=== PATIENT | female | born 2000 | race Caucasian/White ===

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

== ENCOUNTER 2020-11-07 14:40 | Emergency (ER) | payer MEDICAID ==
[~2020-11-07] VITALS: Ht 157.5 cm; Wt 48.0 kg
[2020-11-07] MEDS ORDERED: PYRIDOXINE HCL 50MG TABLET PO ONE (15:15)
[2020-11-07 15:51] LABS: CHLORIDE 106 mEq/L (98-107)
[2020-11-07 16:37] VITALS: BP 101/71
== END 2020-11-07 16:41 | disposition home or self-care (01) ==
LOC: ER 14:40
DX: O21.8 Other vomiting complicating pregnancy (principal); O26.891 Other specified pregnancy related conditions, first trimester; J45.909 Unspecified asthma, uncomplicated; G40.909 Epilepsy, unspecified, not intractable, without status epilepticus; Z3A.01 Less than 8 weeks gestation of pregnancy; Z98.890 Other specified postprocedural states
CPT/HCPCS: 36415; 80048; 81025; 93005; 99284

== ENCOUNTER 2024-01-13 11:09 | Emergency (ER) | payer MEDICAID ==
[~2024-01-13] VITALS: Ht 157.5 cm; Wt 58.0 kg
[2024-01-13 11:12] VITALS: O2SAT 98
[2024-01-13 11:45] LABS: BASOPHILS % 0.5 % (0.0-2.0); HEMATOCRIT. 41.4 % (36.0-48.0); HEMOGLOBIN. 14.2 g/dL (12.0-16.0); LYMPHOCYTES % 24.5 % (20.0-50.0); MEAN CORPUSCULAR HEMOGLOBIN 29.2 pg (28.0-32.0); MEAN CORPUSCULAR HGB CONC 34.2 g/dL (31.0-37.0); MEAN CORPUSCULAR VOLUME 85.3 fL (81.0-99.0); MONOCYTES % 7.8 % (2.0-8.0); NEUTROPHILS % 66.2 % (40.0-76.0); PLATELET 370 x1000/uL (130-400); RED BLOOD CELL COUNT 4.85 mill/uL (4.2-5.4); RED CELL DISTRIBUTION WIDTH 13.1 % (11.6-14.6); WHITE BLOOD COUNT 6.1 x1000/uL (4.5-11.0)
[2024-01-13 12:00] LABS: ALANINE AMINOTRANSFERASE 66 IU/L (10-49); ALBUMIN 4.9 g/dL (3.2-4.8); ASPARTATE AMINOTRANSFERASE 27 IU/L (<34); BILIRUBIN TOTAL 0.7 mg/dL (0.1-1.0); CALCIUM 9.1 mg/dL (8.7-10.4); CARBON DIOXIDE 25 mEq/L (21-32); CHLORIDE 105 mEq/L (98-107); CREATININE 0.5 mg/dL (0.6-1.0); GLUCOSE 95 mg/dL (70-105); POTASSIUM 3.8 mEq/L (3.5-5.1); PROTEIN TOTAL 7.9 g/dL (6.0-8.3); SODIUM 137 mEq/L (136-145); UREA NITROGEN BLOOD 7 mg/dL (9-23)
[2024-01-13 12:05] LABS: HCG SCREEN NEGATIVE
[2024-01-13 14:00] LABS: CLARITY URINE CLEAR (CLEAR); COLOR URINE YELLOW (YELLOW); GLUCOSE URINE NEGATIVE (NEGATIVE); KETONES URINE NEGATIVE (NEGATIVE); LEUKOCYTE ESTERASE URINE NEGATIVE (NEGATIVE); NITRITE URINE NEGATIVE (NEGATIVE); OCCULT BLOOD URINE NEGATIVE (NEGATIVE); PH URINE 5.5 (4.5-8.0); PROTEIN URINE NEGATIVE (NEGATIVE); SPECIFIC GRAVITY URINE 1.022 (1.005-1.030); UROBILINOGEN URINE 0.2 E.U./dL (0.2-1.0)
[2024-01-13] MEDS: FAMOTIDINE 20MG TABLET PO NR (16:15)
[2024-01-13] MEDS: MAGNESIUM/ALUMINUM HYDROXIDE/SIMETHICONE 30ML UDC PO NR (16:15)
[2024-01-13] MEDS ORDERED: FAMO-134 MT (17:03)
[2024-01-13 17:58] VITALS: BP 104/71; PULSE 68; RESP 17; TEMP 98.2
== END 2024-01-13 19:18 | disposition home or self-care (01) ==
LOC: ER 11:09
DX: R10.9 Unspecified abdominal pain (principal); J45.909 Unspecified asthma, uncomplicated; Z98.890 Other specified postprocedural states
CPT/HCPCS: 36415; 76705; 80053; 81003; 81025; 84703; 85025; 99284

== ENCOUNTER 2024-03-12 10:49 | Emergency (ER) | payer MEDICAID ==
[~2024-03-12] VITALS: Ht 160 cm; Wt 57.0 kg
[~2024-03-12 10:49] MED LIST changes: +FAMO-134 MT
[2024-03-12 10:55] VITALS: O2SAT 97
[2024-03-12] MEDS ORDERED: IBUP-2029 MT (12:07)
[2024-03-12] MEDS: IBUPROFEN 600MG TABLET PO ONE (12:29)
[2024-03-12 12:30] VITALS: BP 110/58; PULSE 78; RESP 18; TEMP 98.2
== END 2024-03-12 12:36 | disposition home or self-care (01) ==
LOC: ER 10:49
DX: J02.9 Acute pharyngitis, unspecified (principal); D64.9 Anemia, unspecified; J45.909 Unspecified asthma, uncomplicated; Z98.890 Other specified postprocedural states
CPT/HCPCS: 81025; 87070; 87430; 99283